=== PATIENT | female | born 1955 | race Caucasian/White ===

== ENCOUNTER 2025-05-12 13:24 | Outpatient (OUT) | payer MEDICARE, SELFPAY ==
--- OUTSIDE RECORDS SUMMARY | 2025-05-12 13:35 | XMS_ITS | Clinical Summary ---
Author Organization [facility] Address [address], [address] [place] [address] Care Team Providers Care Sourcing Assistant Name Role Phone Herbert Noland DO, Charles P Primary Care Provider + Allergies Active AllergyReactionsCriticalityNoted CiiuIqsqvmyoNzicqbdmrnfewdqy77/12/2013 Other reaction(s): Unknown Sulfamethoxazole-Hedtfkbizdsf08/10/2022 Medications MedicationSigDispense QuantityRefillsLast FilledStart DateEnd DateStatus simvastatin (ZOCOR) 20 MG tablet simvastatin 20 mg tablet TAKE 1 TABLET BY MOUTH EVERY DAY IN THE EVENINGActive ondansetron (ZOFRAN) 4 MG tablet ondansetron HCl 4 mg tablet TAKE 1 TABLET BY MOUTH EVERY 6 HOURS NEEDEDActive nitroGLYCERIN (NITROSTAT) 0.4 MG SL tablet nitroglycerin 0.4 mg sublingual tablet DISSOLVE ONE TABLET UNDER TONGUE NEEDED FOR CHEST PAIN06/21/2013ctive nitrofurantoin, macrocrystal-monohydrate, (MACROBID) 100 MG capsule nitrofurantoin monohydrate/macrocrystals 100 mg capsule TAKE 1 CAPSULE BY MOUTH EVERY 12 HOURS WITH FOOD FOR 5 DAYSActive montelukast (SINGULAIR) 10 MG tablet montelukast 10 mg tablet TAKE 1 TABLET BY MOUTH EVERY DAYActive levothyroxine (SYNTHROID) 88 MCG tablet levothyroxine 88 mcg tablet TAKE 1 TABLET BY MOUTH EVERY DAYActive fexofenadine (JOAQUIN) 180 MG tablet Allergy Relief (fexofenadine) 180 mg tablet TAKE 1 TABLET BY MOUTH EVERY DAYActive citalopram (CELEXA) 20 MG tablet citalopram 20 mg tablet TAKE 1 TABLET BY MOUTH EVERY DAYActive ciprofloxacin (CIPRO) 500 MG tablet ciprofloxacin 500 mg tablet TAKE 1 TABLET BY MOUTH TWICE DAILYActive Calcium Polycarbophil (FIBER) 625 MG TABS Take 625 mg by mouth dailyActive ascorbic acid (VITAMIN C) 1000 MG tablet Take 1,000 mg by mouth dailyActive acyclovir (ZOVIRAX) 400 MG tablet acyclovir 400 mg tablet TAKE 1 TABLET BY MOUTH THREE TIMES DAILYActive amLODIPine (NORVASC) 5 MG tablet amlodipine 5 mg tablet TAKE 1 TABLET BY MOUTH EVERY DAYActive Active Problems No known active problems Social History Tobacco UseTypesPacks/DayYears UsedDateSmoking Tobacco: FormerCigarettes Smokeless Tobacco: Never Tobacco Cessation:Counseling Given: Not Answered CommentsUnknownSex and Gender InformationValueDate RecordedSex Assigned at BirthNot on fileLegal ZmiDxtmfs78/01/2022 2:18 PM EDTGender IdentityNot on fileSexual OrientationNot on file Last Filed Vital Signs Vital SignReadingTime TakenCommentsBlood Pressure--Pulse--Temperature-- Respiratory Rate--Oxygen Saturation--Inhaled Oxygen Concentration--Xihbbx05.2 kg (135 lb)04/15/2022 1:28 PM TMLSlwbve356.7 cm (5' 8 )04/15/2022 1:28 PM EDTBody Mass Index20.5310 1:28 PM EDT Plan of Treatment Not on file Insurance MemberSubscriberPlan / Payer (Effective 2021-Present)Name:Leola Bravo Relation to Subscriber:SelfName:Leola Bravo Payer ID:[id number] (NAIC) Group ID:Not on file Type:Not on file Address: [place] [id number] Care Teams Team MemberRelationshipSpecialtyStart DateEnd Roman Anne Sr., [address] [place] [address] PCP - GeneralFamily Hbhfyqjr30/10/22
--- OUTSIDE RECORDS SUMMARY | 2025-05-12 13:35 | XMS_ITS | Clinical Summary ---
Author Organization [facility] Address [facility] [place] [id number] Care Team Providers Care Mill Turner Name Role Phone House , Roman KWOK Primary Care Provider + Allergies Active AllergyReactionsCriticalityNoted DateCommentsSulfamethoxazoleUnknown 06/17/2013 Medications MedicationSigDispense QuantityRefillsLast FilledStart DateEnd DateStatus LORAZEPAM (ATIVAN ORAL) Take 1 mg by mouth three times daily.Active SIMVASTATIN (ZOCOR ORAL) Take 20 mg by mouth once daily.Active ASPIRIN ORAL Take 81 mg by mouth once daily.Active MULTIVIT &MINERALS/FERROUS FUM (MULTI VITAMIN ORAL) Take by mouth.Active FLAXSEED OIL-OMEGA 3,6,9 ORAL Take 1 tablet by mouth three times daily.Active Ascorbic Acid (VITAMIN C) 1,000 mg tablet Take 1,000 mg by mouth once daily.Active calcium polycarbophil (FIBER) 625 mg tablet Take 625 mg by mouth once daily.Active FERROUS SULFATE, DRIED (IRON, DRIED, ORAL) Take 325 mg by mouth once daily.Active CYANOCOBALAMIN, VITAMIN B-12, (VITAMIN B-12 ORAL) Take by mouth once daily.Active NIFEdipine XL 90 mg 24 hr tablet Take 1 tablet by mouth once daily. 90 tablet ctive nitroglycerin sublingual 0.4 mg SL tablet Dissolve 1 tablet under the tongue every 5 minutes as needed. 100 tablet ctive amLODIPine (NORVASC) 5 mg tablet Take 5 mg by mouth once daily.Active levothyroxine (SYNTHROID) 88 mcg tablet Take 88 mcg by mouth daily before breakfast.Active citalopram (CELEXA) 20 mg tablet Take 20 mg by mouth once daily.Active Active Problems ProblemNoted DateDiagnosed DateAngina pectoris, zrfwqim9306/21/2013 Family History Medical HistoryRelationCommentsDiabetesBrother 4HeartBrother 5HeartFatherCancer Maternal GrandfatherCancerMotherDiabetesMotherDiabetesPaternal Grandmother RelationStatusCommentsBrother 1AliveBrother 2AliveBrother 3AliveBrother 4Brother 5FatherDeceasedMaternal GrandfatherMotherDeceasedPaternal GrandmotherSister 1 AliveSister 2Alive Social History Tobacco UseTypesPacks/DayYears UsedDateSmoking Tobacco: UixgldNamafjmcff024 06/21/1973 - 06/21/1991Smokeless Tobacco: Never Tobacco Cessation:Counseling Given: No Alcohol UseStandard Drinks/ZifbDwqpizqvFcm01 (1 standard drink = 0.6 oz pure alcohol)PHQ-2AnswerDate RecordedPHQ-2 ucwrt999/28/2023Area Deprivation Index AnswerDate RecordedNational Score (1-100), lower number is lower risk71 07/08/2023State Score (1-10), lower number is lower apzz5794Data from: https://www.neighborhoodatlas.medicine.[facility].edu/. Last address [address] [address]4CommentsUnknownSex and Gender InformationValueDate RecordedSex Assigned at BirthNot on fileLegal SexFemale 05/26/2013 12:13 PM ESTGender IdentityNot on fileSexual OrientationNot on file Last Filed Vital Signs Vital SignReadingTime TakenCommentsBlood Xkpkmpvt844/65007/08/2023 2:26 PM EST Nkhcv755107/08/2023 2:26 PM XJVZbgclisbpzx68.1 ??C (98.8 ??F)11/24/2014 11:23 AM EDTRespiratory Xpid342611/24/2014 1:50 PM EDTOxygen Uprfuhikrd95%11/24/2014 1:50 PM EDTInhaled Oxygen Concentration--Plbgcf33.4 kg (142 lb)07/08/2023 2:26 PM EST Gzrcky884.7 cm (5' 8 )06/21/2013 9:43 AM ESTBody Mass Index-- Plan of Treatment Health MaintenanceDue DateLast DoneCommentsAnxiety Pzwpbfzai90/01/1974Depression Ecfxebgvm36/01/1974Hepatitis C Ekscblldn98/01/1974DTaP,Tdap,Td Vaccine (1 - Tdap)1974Mammogram Szjnspnzj40/01/1996CT Daxnwyunvvya71/01/2001Cologuard (FIT-DNA)2000Fecal Occult Blood07/07/20000502Dpxflnrbipung33/01/2001Shingrix Vaccine (2 of 3), 12/06/2014Pneumococcal Vaccine: 50+ (2 of 2 - PCV), 04/25/20142641Zyqldztnlzu00, 11/24/2014Colorectal Cancer Txavtvmob42/21/2020Medicare Annual Wellness Visit 06/06/2020Bone Density Hjrzcmvmh36/01/2021Diabetes Tompjhghv49/03/2023 03/09/2020, 03/09/2020Advance Directive Wgngzdcqtg33/01/2025Covid-19 Vaccine ( season), 05/15/2022, 05/28/2021, Additional history existsInfluenza Vaccine (#1)/, 05/14/2022, 05/02/2021, Additional history existsLipid Wnebaaxum37RSV Vaccine (1 - 1-dose 75+ series)2030 Procedures Procedure NamePriorityDate/TimeAssociated DiagnosisCommentsCOLONOSCOPY SCRN NOT HIGH XVXYPrsvzte79/21/2015 12:02 PM EDT Screening for colon cancer from Last 3 Months or Most Recently Relevant to Health Maintenance Results * COLONOSCOPY SCRN NOT HIGH RISK (11/24/2014 12:02 PM EDT)ComponentValueRef RangeTest MethodAnalysis TimePerformed AtPathologist SignatureTranscription [facility] Patient Name: Leola Bravo Procedure Date: 11/24/2014 12:02 PM Date of : 1955 Admit Type: Outpatient Age: 59 Gender: Female Note Status: Finalized Procedure: ? Colonoscopy Indications: ? Screening in patient at increased risk: Colorectal ? cancer around age 60 and around age 63. Maternal ? grandfather also of colon cancer. She had a ? colonoscopy about 10 years ago but had such severe pain ? she had delayed rescope until now. Providers: ? Malinda Hernandez MD Patient Profile: ? Refer to note in patient chart for documentation of ? history and physical. Last Colonoscopy: 10 years ago. Referring Physician: Medicines: ? Midazolam 7 mg IV, Fentanyl 175 micrograms IV Complications: ? No immediate complications. Requesting Provider: Procedure: ? Pre-Anesthesia Assessment: ? - Prior to the procedure, a History and Physical was ? performed, and patient medications and allergies were ? reviewed. The patient is competent. The risks and ? benefits of the procedure and the sedation options and ? risks were discussed with the patient. All questions ? were answered and informed consent was obtained. Patient ? identification and proposed procedure were verified by ? the physician in the pre-procedure area. Mental Status ? Examination: alert and oriented. Airway Examination: ? normal oropharyngeal airway and neck mobility. ? Respiratory Examination: clear to auscultation. CV ? Examination: normal. Prophylactic Antibiotics: The ? patient does not require prophylactic antibiotics. Prior ? Anticoagulants: The patient has taken no previous ? anticoagulant or antiplatelet agents. ASA Grade ? Assessment: II - A patient with mild systemic disease. ? After reviewing the risks and benefits, the patient was ? deemed in satisfactory condition to undergo the ? procedure. The anesthesia plan was to use moderate ? sedation / analgesia (conscious sedation). Immediately ? prior to administration of medications, the patient was ? re-assessed for adequacy to receive sedatives. The heart ? rate, respiratory rate, oxygen saturations, blood ? pressure, adequacy of pulmonary ventilation, and ? response to care were monitored throughout the ? procedure. The physical status of the patient was ? re-assessed after the procedure. ? After I obtained informed consent, the scope was passed ? under direct vision. Throughout the procedure, the ? patient's blood pressure, pulse, and oxygen saturations ? were monitored continuously. The was introduced through ? the anus and advanced to the cecum, identified by ? appendiceal orifice and ileocecal valve. The colonoscopy ? was performed without difficulty. Her sigmoid is ? tethered most likely from her hysterectomy. She is also ? very sensitive to air insufflation. The patient ? tolerated the procedure well. The quality of the bowel ? preparation was good. The terminal ileum and the ? ileocecal valve were photographed. Findings: ? A 5 mm polyp was found in the transverse colon. The polyp was sessile. ? The polyp was removed with a hot biopsy forceps. Resection and retrieval ? were complete. Verification of patient identification for the specimen ? was done. Estimated blood loss was minimal. ? Three polys were found close together in the proximal descending colon ? with size from 5 to 10 mm polyp. All were sessile. All were removed with ? a hot biopsy forceps and placed in separate jars. Resection and ? retrieval were complete. Verification of patient identification for the ? specimen was done. Estimated blood loss was minimal. ? A 5 mm polyp was found in the sigmoid colon. The polyp was sessile. The ? polyp was removed with a hot biopsy forceps. Resection and retrieval ? were complete. Verification of patient identification for the specimen ? was done. Estimated blood loss was minimal. Impression: ?TOTAL 5 POLYPS WERE REMOVED- ? One 5 mm polyp in the transverse colon. Resected and ? retrieved. ? - THREE 5 to 10 mm polyps in the descending colon. ? Resected and retrieved. ? - One 5 mm polyp in the sigmoid colon. Resected and ? retrieved. Recommendation: ?- Await pathology results. ? - Patient has a contact number available for ? emergencies. The signs and symptoms of potential delayed ? complications were discussed with the patient. Return to ? normal activities tomorrow. Written discharge ? instructions were provided to the patient. ? - Continue present medications. ? - Repeat colonoscopy is recommended. The colonoscopy ? date will be determined after pathology results from ? today's exam become available for review. ? - Resume previous diet. Attending Participation: ? I personally performed the entire procedure. Malinda Hernandez MD 11/24/2014 1:09 PM This report has been signed electronically by Malinda Hernandez MD Number of Addenda: 0 Note Initiated On: 11/24/2014 12:02 PM Procedure Start: 12:20:20 PM Procedure End: 1:00:43 PMDIGESTIVE DISEASE INSTITUTEAnatomical RegionLaterality ModalityOtherSpecimen (Source)Anatomical Location / LateralityCollection Method / VolumeCollection TimeReceived Time11/24/2014 12:02 PM EDT Narrative Authorizing ProviderResult TypeResult StatusTraverona Hernandez MDDIGESTIVE DISEASE Final Result from Last 3 Months or Most Recently Relevant to Health Maintenance Insurance MemberSubscriberPlan / Payer (Effective 2020-Present)Name:Leola Bravo Member ID:[id number] Relation to Subscriber:SelfName:Leola Bravo Subscriber ID:[id number] Payer ID:Not on file Group ID:Not on file Type:Medicare Address: [facility] [place] [phone] Care Teams Team MemberRelationshipSpecialtyStart DateEnd Date Roman Godinez Sr., DO [facility] Hqeixxcf30/20/13
--- OUTSIDE RECORDS SUMMARY | 2025-05-12 13:35 | XMS_ITS | Clinical Summary ---
Author Organization [facility] Address [address] [place] [address] Care Team Providers Care Journeyman Plumber Name Role Phone Unavailable Primary Care Provider Unavailabl e Social History Tobacco UseTypesPacks/DayYears UsedDateSmoking Tobacco: Never Assessed CommentsUnknownSex and Gender InformationValueDate RecordedSex Assigned at Not on fileLegal EpbRnyoaw73/15/2023 6:52 PM EDTGender IdentityNot on fileSexual UnlhmfjpcdkOpfxipzc09/07/2023 1:01 PM EST Last Filed Vital Signs Vital SignReadingTime TakenCommentsBlood Pressure--Pulse--Temperature-- Respiratory Rate--Oxygen Saturation--Inhaled Oxygen Concentration--Dajqxf98.5 kg (140 lb)02/07/2020 12:00 PM TTFZoqgjx155.6 cm (5' 6 )02/07/2020 12:00 PM EDTBody Mass Index22.608 12:00 PM EDT Plan of Treatment Not on file
--- OUTSIDE RECORDS SUMMARY | 2025-05-12 13:35 | XMS_ITS | Clinical Summary ---
Author Organization [facility] Address [id number] [place] [address] Care Team Providers Care Recreation Therapy Aides Teacher Name Role Phone Roman Godinez DO Primary Care Provider [phone] Social History Tobacco UseTypesPacks/DayYears UsedDateSmoking Tobacco: Never AssessedChildcare AnswerDate DbmgfgaqQbiutrluzOonkayw13/12/2019EmploymentAnswerDate Recorded UypcanmjkqHlmgeeq89/12/2019Purpose - LifeAnswerDate RecordedPurpose and direction in hsdpLtoppef70/11/2021CommentsUnknownSex and Gender InformationValueDate RecordedSex Assigned at BirthNot on fileLegal SexFemale 02/09/2015 11:26 AM EDTGender IdentityNot on fileSexual OrientationNot on file Plan of Treatment Health MaintenanceDue DateLast DoneCommentsDepression Omihfcqaf75/01/1968Tobacco Uzjlddqwx91/01/1968Adult BMI Xpulmwctl68/01/1974DTaP,Tdap and Td Vaccines (1 - Tdap)1974Zoster (Shingles) Vaccine (1 of 2)2005Fall Risk Screening 2020Influenza Atfluvi7203/07/2025RSV ( or age 60+ yrs) (1 - 1-dose 75+ series)2030 Medical Devices Not on file Insurance Care Teams Team MemberRelationshipSpecialtyStart DateEnd Date Roman Godinez DO PCP [facility]12/31/19
--- NOTE | 2025-05-12 13:58 | MM_ITS ---
Patient Name: SABINO GRANADOS MR#: [id number] : 1955 Exam Date: 05/12/2025 Ordering Doctor: DR DENYS HALL D.O. RADIOLOGY REPORT PROCEDURE: MM TOMOSYNTHESIS SCREENING BI COMPARISON: MG MAMM SCREEN 3D [place]ER CAD, 01/23/2022. MG MAMM SCREEN [place] W CAD, 07/18/2020. MG MAMM SCREEN [place] W CAD, 04/17/2017. MG MAMM [place] SCRN W CAD DIG, 02/06/2015. INDICATIONS: Screening Calculator Name NCI Breast Cancer Risk Assessment Tool 5 Year Breast Cancer Risk 1.40% Lifetime Breast Cancer Risk 4.30% Personal Breast Cancer No Personal Ovarian Cancer No Treatments None Family Cancers Mother with colon cancer at age 62; Grandfather-maternal with colon cancer at age ~70. LOCATION: [facility] BREAST COMPOSITION: The breasts are heterogeneously dense, which may obscure small masses. FINDINGS: DIAGNOSTIC CATEGORY 2--BENIGN FINDING. NO CHANGE FROM COMPARISON. RIGHT BREAST: No significant suspicious finding. Benign appearing calcifications are present with similar focal asymmetries. LEFT BREAST: No significant suspicious finding. Benign appearing calcifications are present with similar focal asymmetries. RECOMMENDATIONS: ROUTINE MAMMOGRAM AND CLINICAL EVALUATION IN 12 MONTHS. Dictated by: Jose Lima MD on 05/12/2025 at 15:19 Approved by: Jose Lima MD on 05/12/2025 at 15:24
== END 2025-05-12 13:25 | disposition home or self-care (01) ==
LOC: MAMMO 13:32
PROVIDERS: PCP Family Medicine; Visit Provider Family Medicine
DX: Z12.31 Encounter for screening mammogram for malignant neoplasm of breast (principal); Z80.0 Family history of malignant neoplasm of digestive organs
CPT/HCPCS: 77063; 77067